=== PATIENT | male | born 2000 ===

== ENCOUNTER 2021-08-15 22:05 | Emergency (ER) | payer MEDICAID ==
[2021-08-15] MEDS ORDERED: TETANUS,DIPH,PERTUSS(ACELL) VACCINE 0.5 ML SYRINGE IM ONE (22:18)
[2021-08-15] MEDS ORDERED: LIDOCAINE (1%) 10 MG/1 ML VIAL 20 ML MDV INFILTRATI ONE (22:18)
[2021-08-15] MEDS ORDERED: HYDROcodone/ACETAMINOPHEN 5-325 MG TAB PO ONE (22:18)
[2021-08-15] MEDS ORDERED: cephALEXin 500 MG CAP PO ONE (22:18)
--- NOTE | 2021-08-15 22:58 | XRay Report ---
LEFT FOREARM 2 VIEW(S) INDICATION / CLINICAL INFORMATION: Left forearm laceration from glass. COMPARISON: None available. FINDINGS: BONES / JOINT(S): No acute fracture or subluxation. No significant arthritis. SOFT TISSUES: Large soft tissue laceration along the ulnar aspect of the forearm and wrist. Tiny 2 mm density within the ulnar/volar soft tissues of the mid forearm which could represent a small foreign body. ADDITIONAL FINDINGS: None. Signer Name: Shi Vital MD Signed: 08/15/2021 10:53 PM Workstation Name: [id number]
[2021-08-15] MEDS ORDERED: SODIUM CHLORIDE 0.9% IRR 500 ML BOTTLE IR ONE (23:16)
--- NOTE | 2021-08-16 00:59 | Emergency Department Report ---
ED General Adult HPI - General Chief complaint: Wound/Laceration Stated complaint: LACERATION Time Seen by Provider: 08/15/21 22:20 Source: patient Mode of arrival: Ambulatory Limitations: No Limitations - History of Present Illness Initial comments: Patient a 20-year-old male who presents for laceration multiple to left forearm and wrist. Patient states he hit his hand on a glass on second interview patient states he pushed his hand through a window at home. Patient denies SI or HI. There is no numbness tingling or paralysis. Multiple lacerations and including one small arterial. Range of motion remains intact. Tetanus unknown.. Patient states 5/10 pain exacerbated by movement palpation. Bleeding is controlled by direct pressure via towel self applied. Patient drove self to the ED and ambulated into ED patient is alert oriented x3 in no acute distress. Severity scale (0 -10): 5 - Related Data Previous Rx's Medication Instructions Recorded Last Taken Type cephALEXin [Keflex] 500 mg PO Q8HR 7 Days #21 cap 08/16/21 Unknown Rx traMADoL [Ultram] 50 mg PO Q6HR PRN #12 tablet 08/16/21 Unknown Rx Allergies Allergy/AdvReac Type Severity Reaction Status Date / Time No Known Allergies Allergy Unverified 08/15/21 22:09 ED Review of Systems ROS: Stated complaint: LACERATION Other details as noted in HPI Constitutional: denies: chills, fever Eyes: denies: eye pain, eye discharge, vision change ENT: denies: ear pain, throat pain Respiratory: denies: cough, shortness of breath, wheezing Cardiovascular: denies: chest pain, palpitations Endocrine: no symptoms reported Gastrointestinal: denies: abdominal pain, nausea, diarrhea Genitourinary: denies: urgency, dysuria Musculoskeletal: denies: back pain, joint swelling, arthralgia Skin: other (Laceration of the left forearm wrist) Neurological: denies: headache, weakness, paresthesias Psychiatric: denies: anxiety, depression Hematological/Lymphatic: denies: easy bleeding, easy bruising ED Past Medical Hx - Past Medical History Previous Medical History?: No - Surgical History Past Surgical History?: No - Medications Home Medications: Home Medications Medication Instructions Recorded Confirmed Last Taken Type cephALEXin [Keflex] 500 mg PO Q8HR 7 Days #21 cap 08/16/21 Unknown Rx traMADoL [Ultram] 50 mg PO Q6HR PRN #12 tablet 08/16/21 Unknown Rx ED Physical Exam - General Limitations: No Limitations General appearance: alert, in no apparent distress - Head Head exam: Present: atraumatic, normocephalic - Eye Eye exam: Present: EOMI Pupils: Present: normal accommodation - ENT ENT exam: Present: mucous membranes moist - Neck Neck exam: Present: normal inspection, full ROM. Absent: tenderness - Respiratory Respiratory exam: Present: normal lung sounds bilaterally. Absent: respiratory distress, wheezes, stridor - Cardiovascular Cardiovascular Exam: Present: regular rate, normal rhythm, normal heart sounds. Absent: systolic murmur, diastolic murmur, rubs, gallop - GI/Abdominal GI/Abdominal exam: Present: soft, normal bowel sounds. Absent: distended, tenderness - Rectal Rectal exam: Present: deferred - Extremities Exam Extremities exam: Present: full ROM, normal capillary refill - Expanded Upper Extremity Exam Left Forearm Wrist exam: Present: swelling, abrasion (Multiple), laceration (Multiple), other (Range of motion is intact no nerve muscle or tendon damage. Flexion extension of wrist and fingers intact against direct opposition. Distal pulses +2 OPERATING ENGINEER less than 3 seconds bilateral). Absent: deformity, crepidus, dislocation, tenderness over anatomical snuff box, pain with axial thumb loading Hand Wrist exam: Present: normal inspection, full ROM, laceration (As above). Absent: tenderness, swelling Neuro motor exam: Present: wrist extension intact, thumb opposition intact, thumb IP flexion intact, thumb adduction intact, fingers 2-5 abduction intact Neurosensory exam: Present: radial nerve intact Vascular: Present: normal capillary refill - Back Exam Back exam: Present: normal inspection, full ROM. Absent: tenderness - Neurological Exam Neurological exam: Present: alert, oriented X3, CN II-XII intact, normal gait, reflexes normal. Absent: motor sensory deficit - Expanded Neurological Exam Expanded Patient oriented to: Present: person, place, time Speech: Present: fluid speech Sensory exam: Upper Extremity Light Touch: Normal, Upper Extremity Pin Prick: Normal, Upper Extremity Temperature: Normal, UE 2 Point Discrimination: Normal Motor strength exam: RUE: 5, LUE: 5, RLE: 5, LLE: 5 DTR: bicep (R): 1+, bicep (L): 1+, tricep (R): 1+, tricep (L): 1+ Best Eye Response ([place]): (4) open spontaneously Best Motor Response ([place]): (6) obeys commands Best Verbal Response ([place]): (5) oriented [place] Total: 15 - Psychiatric Psychiatric exam: Present: normal affect, normal mood - Skin Skin exam: Present: dry, normal color, other (Laceration as above) - Laceration /Wound Repair Left Distal Arm Wound Location: upper extremity (Left forearm and wrist lacerations multiple irregular flaps no nerve muscle or tendon damage longus laceration 7 cm) Wound Length (cm): 7 (Multiple) Wound's Depth, Shape: into muscle, irregular, flap Wound Explored: foreign body removed (Glass intact x1 piece approximately 2 mm) Irrigated w/ Saline (ccs): 500 Betadine Prep?: Yes Anesthesia: 1% Lidocaine Volume Anesthetic (ccs): 20 (Total to multiple lacerations glass removal intact) Wound Debrided: minimal Wound Repaired With: sutures Suture Size/Type: 3:0, nylon Number of Sutures: 50 Layer Closure?: Yes (X2 arterial bleed controlled) Deep Layer Suture Size/Type: 4:0, chromic (Vicryl) Number Deep Layer Sutures: 2 Sterile Dressing Applied?: Yes (Nonstick [place] dressing) Progress: Left wrist lacerations multiple times to 7 cm no nerve muscle or tendon damage. Range of motion remains intact CMS intact OPERATING ENGINEER less than 3 seconds distal pulses +2. Anesthesia with 1% lidocaine x20 cc total to multiple wounds. Wounds closed with 3.0 sutures nylon to top layer, 4.0 Vicryl x2 to deep layer all bleeding is controlled, CMS remains intact all edges well approximated. Patient given wound care instructions including follow-up with primary care in 2 days for wound check. 7 to 10 days for suture removal. Patient given booster extra patient given Keflex patient given pain control during procedure patient tolerated procedure with minimal distress. Patient verbalized understanding of discharge instructions. ED Medical Decision Making - Radiology Data Radiology results: report reviewed, image reviewed LEFT FOREARM 2 VIEW(S) INDICATION / CLINICAL INFORMATION: Left forearm laceration from glass. COMPARISON: None available. FINDINGS: BONES / JOINT(S): No acute fracture or subluxation. No significant arthritis. SOFT TISSUES: Large soft tissue laceration along the ulnar aspect of the forearm and wrist. Tiny 2 mm density within the ulnar/volar soft tissues of the mid forearm which could represent a small foreign body. ADDITIONAL FINDINGS: None. Signer Name: Shi Vital MD Signed: 08/15/2021 10:53 PM Workstation Name: [id number] Transcribed By: DT Dictated By: James Vital MD Electronically Authenticated By: James Vital MD Signed Date/Time: 08/15/21 6947 - Medical Decision Making Left forearm lacerations multiple see procedure note all bleeding is controlled CMS remains intact range of motion is intact dynamics ax consultant are equal distal pulses intact OPERATING ENGINEER less than 3 seconds patient given wound care instruction verbalizes understanding of same patient DC'd home with prescriptions. Patient will follow-up with primary care in 2 days for wound check in 7 to 10 days for suture removal will return to ED should symptoms worsen. Critical care attestation.: If time is entered above; I have spent that time in minutes in the direct care of this critically ill patient, excluding procedure time. ED Disposition Clinical Impression: Forearm laceration Qualifiers: Encounter type: initial encounter Laterality: left Qualified Code(s): S51.812A - Laceration without foreign body of left forearm, initial encounter Disposition: HOME / SELF CARE / HOMELESS Is pt being admited?: No Does the pt Need Aspirin: No Condition: Stable Instructions: Laceration Care, Adult, Sutured Wound Care, [id number] Additional Instructions: Take medication as prescribed, wound care as directed, follow-up primary care in 2 days for wound check. 7 to 10 days for suture removal. Return to emergency department should symptoms worsen. Prescriptions: cephALEXin [Keflex] 500 mg PO Q8HR 7 Days #21 cap traMADoL [Ultram] 50 mg PO Q6HR PRN #12 tablet PRN Reason: Pain Referrals: KELSEY HOWE MD [Staff Physician] - 2-3 Days FABIO WOLFE MD [Staff Physician] - 2-3 Days Forms: Work/School Release Form(ED) Time of Disposition: 01:06
[2021-08-16 02:45] VITALS: BP 126/84
== END 2021-08-16 02:00 | disposition home or self-care (01) ==
LOC: EDBD 22:05 → ED 22:05
DX: S51.812A Laceration without foreign body of left forearm, initial encounter (principal); X58.XXXA Exposure to other specified factors, initial encounter; Y93.89 Activity, other specified; Y92.89 Other specified places as the place of occurrence of the external cause; Y99.8 Other external cause status
CPT/HCPCS: 12032; 73090; 90471; 90715; 99283; J3490

== ENCOUNTER 2021-08-17 08:22 | Emergency (ER) | payer MEDICAID ==
[2021-08-17 08:50] VITALS: BP 153/79
--- NOTE | 2021-08-17 09:16 | Emergency Department Report ---
- General Chief Complaint: Laceration/Recheck/Suture Stated Complaint: WOUND CHECK Time Seen by Provider: 08/17/21 09:03 Source: patient Mode of arrival: Ambulatory Limitations: No Limitations - History of Present Illness Initial Comments: 20-year-old male presents to the emergency room for wound check of his left forearm. Patient was seen here on the for multiple lacerations after hitting a glass window. Patient was placed on Keflex and tramadol. Patient states he has been taking his medications as prescribed. He comes in stating that it was losing this morning. He denies any excruciating pain states he just feels a little uncomfortable. He denies any swelling. He states he is able to move his fingers and his wrist without any problems. Denies any fever chills no nausea no vomiting no chest pain or shortness of breath. Patient states he has not cleaned his wound as he was instructed to wait for 2 days - Related Data Previous Rx's Medication Instructions Recorded Last Taken Type cephALEXin [Keflex] 500 mg PO Q8HR 7 Days #21 cap 08/16/21 Unknown Rx traMADoL [Ultram] 50 mg PO Q6HR PRN #12 tablet 08/16/21 Unknown Rx Allergies Allergy/AdvReac Type Severity Reaction Status Date / Time No Known Allergies Allergy Verified 08/17/21 08:51 ED Review of Systems ROS: Stated complaint: WOUND CHECK Other details as noted in HPI Comment: All other systems reviewed and negative ED Past Medical Hx - Medications Home Medications: Home Medications Medication Instructions Recorded Confirmed Last Taken Type cephALEXin [Keflex] 500 mg PO Q8HR 7 Days #21 cap 08/16/21 Unknown Rx traMADoL [Ultram] 50 mg PO Q6HR PRN #12 tablet 08/16/21 Unknown Rx ED Physical Exam - General Limitations: No Limitations General appearance: alert, in no apparent distress - Head Head exam: Present: atraumatic, normocephalic - Eye Eye exam: Present: normal appearance - ENT ENT exam: Present: mucous membranes moist - Neurological Exam Neurological exam: Present: alert, oriented X3 - Psychiatric Psychiatric exam: Present: normal affect, normal mood - Skin Skin exam: Present: other (Left forearm: Full range of motion at the wrist and fingers, no swelling appreciated nonerythematous none edema test sutures are intact mild serosanguineous fluid. Pulses are intact radial and ulnar. Capillary refills less than 3 seconds). Absent: erythema, petechiae, pallor, ecchymosis ED Course Vital Signs 08/17/21 08:48 Temperature 98.8 F Pulse Rate 91 H Respiratory 18 Rate Blood Pressure 153/79 [Left] O2 Sat by Pulse 100 Oximetry ED Medical Decision Making - Medical Decision Making 20-year-old male presents to the emergency room for wound check of his left forearm. Patient was seen here on the for multiple lacerations after hitting a glass window. Patient was placed on Keflex and tramadol. Patient states he has been taking his medications as prescribed. He comes in stating that it was losing this morning. He denies any excruciating pain states he just feels a little uncomfortable. He denies any swelling. He states he is able to move his fingers and his wrist without any problems. Denies any fever chills no nausea no vomiting no chest pain or shortness of breath. Patient states he has not cleaned his wound as he was instructed to wait for 2 days Patient wounds look well has full range of motion of his fingers and wrist, no edema appreciated, nonerythematous mild tenderness to the sutures but healing well. Pulses are intact fingers are not swollen able to make a fist. Discussed with patient to clean his hand with Dial soap he can place Betadine over the sutures. Instructed patient to continue elevating continue with his medications for his antibiotics and pain and return back to get sutures removed in 7 to 10 days. Patient verbalized understanding Critical care attestation.: If time is entered above; I have spent that time in minutes in the direct care of this critically ill patient, excluding procedure time. ED Disposition Clinical Impression: Visit for wound check Disposition: 01 HOME / SELF CARE / HOMELESS Is pt being admited?: No Does the pt Need Aspirin: No Condition: Stable Additional Instructions: Continue with your Keflex and tramadol for pain. Clean your wound with Dial soap lightly. You can place Betadine on the sutures. Continue to elevate keep your bandage clean and follow-up in the emergency room to have sutures removed in 7 to 10 days or as instructed by the provider that saw you. Return back to the emergency room with any worsening symptoms such as fever chills purulent discharge swelling redness Forms: Work/School Release Form(ED) Time of Disposition: 09:16
== END 2021-08-17 10:11 | disposition home or self-care (01) ==
LOC: ED 08:22
DX: S51.812D Laceration without foreign body of left forearm, subsequent encounter (principal); Z48.00 Encounter for change or removal of nonsurgical wound dressing; Z79.899 Other long term (current) drug therapy; X58.XXXD Exposure to other specified factors, subsequent encounter
CPT/HCPCS: 99282